=== PATIENT | female | born 1980 | race Hispanic/Latino ===

== ENCOUNTER 2018-11-24 04:39 | Emergency (ER) | payer MEDICAID ==
[2018-11-24 05:35] LABS: BILIRUBIN,URINE Negative (NEGATIVE); COLOR,URINE Yellow (YELLOW); GLUCOSE, URINE (UA) Negative (NEGATIVE); KETONES,URINE Negative (NEGATIVE); LEUKOCYTE ESTERASE ,URINE Negative (NEGATIVE); NITRATE,URINE Negative (NEGATIVE); OCCULT BLOOD,URINE Nonhemolyzed Trace (NEGATIVE); PH,URINE 6.5 (5.0-8.0); PROTEIN,URINE Negative (NEGATIVE)
[2018-11-24 05:36] LABS: APPEARANCE,URINE CLEAR (CLEAR); HCG,QUAL RESULT NEGATIVE (NEGATIVE)
[2018-11-24 05:36] LABS: BASOPHILS % (AUTO) 0.9 % (0.0-5.0); EOSINOPHILS % (AUTO) 2.5 % (0.0-8.0); HEMATOCRIT 39.7 % (36-48); LYMPHOCYTES % (AUTO) 25.1 % (21.0-51.0); MEAN CORPUSCULAR HEMOGLOBIN 27.9 pg (27.0-33.0); MEAN CORPUSCULAR HGB CONC 34.1 g/dL (32.0-36.0); MEAN CORPUSCULAR VOLUME 81.8 fL (79-99); MONOCYTES % (AUTO) 8.4 % (3.0-13.0); NEUTROPHILS % (AUTO) 63.1 % (40.0-77.0); NUCLEATED RED BLOOD CELLS 0.1 % (0.0-0.19); PLATELET COUNT (AUTO) 328 K/uL (130-400); RED BLOOD CELL COUNT(AUTO) 4.86 MIL/uL (4.00-5.50); RED CELL DISTRIBUTION WIDTH 13.4 % (11.0-15.5); WHITE BLOOD COUNT (AUTO) 9.7 K/uL (4.8-10.8)
[2018-11-24 05:40] LABS: BACTERIA,URINE None Seen /HPF (None Seen); RBC,URINE None Seen /HPF (0-1); WBC,URINE None Seen /HPF (0-1)
[2018-11-24 05:42] LABS: AMPHET/METH SCREEN,URINE NEGATIVE (NEGATIVE); BARBITURATE SCREEN, URINE NEGATIVE (NEGATIVE); BENZODIAZEPINES SCREEN,URINE NEGATIVE (NEGATIVE); CANNABINOID SCREEN,URINE NEGATIVE (NEGATIVE); COCAINE SCREEN,URINE POSITIVE (NEGATIVE); OPIATE SCREEN,URINE NEGATIVE (NEGATIVE); PHENCYCLIDINE SCREEN,URINE NEGATIVE (NEGATIVE)
[2018-11-24 05:48] LABS: CREATININE 0.8 mg/dL (0.5-1.5); POTASSIUM 3.5 mmol/L (3.5-5.1)
[2018-11-24 05:52] LABS: ALBUMIN 3.6 g/dL (3.5-5.0); BILIRUBIN,TOTAL 0.3 mg/dL (0.2-1.0); TOTAL PROTEIN, SERUM 6.8 g/dL (6.0-8.3)
[2018-11-24] MEDS ORDERED: ONDANSETRON HCL 4 MG/2 ML VIAL ONE (06:34)
[2018-11-24] MEDS ORDERED: ACETAMINOPHEN EXTRA STRENGTH 500 MG TABLET ONE (06:47)
== END 2018-11-24 08:49 | disposition home or self-care (01) ==
LOC: EDH 04:39
DX: R06.00 Dyspnea, unspecified (principal); F14.10 Cocaine abuse, uncomplicated; R11.10 Vomiting, unspecified; R42 Dizziness and giddiness; R20.2 Paresthesia of skin; R07.89 Other chest pain; F41.9 Anxiety disorder, unspecified; Z72.0 Tobacco use
CPT/HCPCS: 36415; 70450; 71045; 80053; 80305; 81001; 81025; 84484; 85025; 93005; 96374; 99285; J2405

== ENCOUNTER → 2019-10-24 | Outpatient (CLI) | payer MEDICAID | END | disposition home or self-care (01) | LOC: RAH 07:09 | PROVIDERS: ATTEND Family Medicine | DX: S39.0 Injury of muscle, fascia and tendon of abdomen, lower back and pelvis (principal); X58.XXXS Exposure to other specified factors, sequela ==

== ENCOUNTER → 2020-10-21 | Outpatient (CLI) | payer MEDICAID | END | disposition home or self-care (01) | LOC: RAH 10:03 | PROVIDERS: ATTEND Internal Medicine Gastroenterology | DX: R13.12 Dysphagia, oropharyngeal phase (principal); R63.3 Feeding difficulties | CPT/HCPCS: 74230; 92611 ==

== ENCOUNTER 2020-11-08 12:36 | Emergency (ER) | payer MEDICAID ==
[~2020-11-08] VITALS: Ht 152.4 cm; Wt 71.2 kg
[2020-11-08 13:17] LABS: BASOPHILS % (AUTO) 0.5 % (0.0-5.0); EOSINOPHILS % (AUTO) 0.8 % (0.0-8.0); HEMATOCRIT 38.9 % (36-48); LYMPHOCYTES % (AUTO) 22.8 % (21.0-51.0); MEAN CORPUSCULAR HEMOGLOBIN 28.9 pg (27.0-33.0); MEAN CORPUSCULAR HGB CONC 34.2 g/dL (32.0-36.0); MEAN CORPUSCULAR VOLUME 84.6 fL (79-99); NEUTROPHILS % (AUTO) 68.5 % (40.0-77.0); PLATELET COUNT (AUTO) 285 K/uL (130-400); RED CELL DISTRIBUTION WIDTH 12.7 % (11.0-15.5); WHITE BLOOD COUNT (AUTO) 7.5 K/uL (4.8-10.8)
[2020-11-08 13:20] LABS: APPEARANCE,URINE Clear (CLEAR); BILIRUBIN,URINE Negative (NEGATIVE); COLOR,URINE Yellow (YELLOW); GLUCOSE, URINE (UA) Negative (NEGATIVE); KETONES,URINE Negative (NEGATIVE); LEUKOCYTE ESTERASE ,URINE Negative (NEGATIVE); NITRATE,URINE Negative (NEGATIVE); OCCULT BLOOD,URINE Trace (NEGATIVE); PROTEIN,URINE Negative (NEGATIVE); UROBILINOGEN,URINE 0.2 mg/dL (0.2-1.0)
[2020-11-08 13:32] LABS: CREATININE 0.6 mg/dL (0.5-1.5); POTASSIUM 3.7 mmol/L (3.5-5.1)
[2020-11-08 13:42] LABS: ALBUMIN 3.7 g/dL (3.5-5.0); BILIRUBIN,TOTAL 0.4 mg/dL (0.2-1.0); TOTAL PROTEIN, SERUM 7.5 g/dL (6.0-8.3)
[2020-11-08 13:46] LABS: BACTERIA,URINE None Seen /HPF (None Seen); RBC,URINE 0-1 /HPF (0-1); WBC,URINE None Seen /HPF (0-1)
[2020-11-08] MEDS ORDERED: MORPHINE 5 MG/ML VIAL (5MG OR GREATER DOSE) IV ONE (14:30)
[2020-11-08] MEDS ORDERED: ONDANSETRON 4MG INJ IVP ONE (14:30)
[2020-11-08] MEDS ORDERED: ONDANSETRON 4MG INJ ONE (14:43)
[2020-11-08] MEDS ORDERED: MORPHINE 5 MG/ML VIAL (5MG OR GREATER DOSE) ONE (14:43)
[2020-11-08 14:47] VITALS: BP 126/79
[2020-11-08] MEDS ORDERED: IOHEXOL-350 75 ML VIAL IV ONE (14:59)
[2020-11-08] MEDS ORDERED: KETOROLAC 30MG VIAL (30MG/ML) IV ONE (15:45)
[2020-11-08] MEDS ORDERED: DICY20TA2 PO (16:15)
[2020-11-09] MEDS ORDERED: SIME180C70 PO (00:45)
== END 2020-11-08 16:37 | disposition home or self-care (01) ==
LOC: EDH 12:36
DX: K57.30 Diverticulosis of large intestine without perforation or abscess without bleeding (principal); Z79.899 Other long term (current) drug therapy; Z98.51 Tubal ligation status
CPT/HCPCS: 36415 ×2; 74177; 76705; 80053 ×2; 81001; 82550 ×2; 83690 ×2; 84484 ×2; 84702; 85025 ×2; 93005 ×2; 96365; 96374; 96375; 99285 ×2; J1885; J2270; J2405; J3490; J7030; S0028; Q9967

== ENCOUNTER 2020-11-08 19:45 | Emergency (ER) | payer MEDICAID ==
[~2020-11-08] VITALS: Ht 165.1 cm; Wt 70.8 kg
[~2020-11-08 19:45] MED LIST: DICY20TA2 PO
[2020-11-08 20:05] VITALS: BP 106/65
[2020-11-08] MEDS ORDERED: FAMOTIDINE 20MG VIAL IV ONE (20:30)
[2020-11-08] MEDS ORDERED: SIMETHICONE 80 MG TAB.CHEW PO ONE (20:30)
[2020-11-08] MEDS ORDERED: NACL 0.9% 1000ML 1,000 ML IV ONE ×2 (20:30→20:47)
[2020-11-08 20:48] LABS: BASOPHILS % (AUTO) 0.3 % (0.0-5.0); EOSINOPHILS % (AUTO) 0.3 % (0.0-8.0); HEMATOCRIT 40.4 % (36-48); LYMPHOCYTES % (AUTO) 12.2 % (21.0-51.0); MEAN CORPUSCULAR HEMOGLOBIN 28.7 pg (27.0-33.0); MEAN CORPUSCULAR HGB CONC 34.2 g/dL (32.0-36.0); MONOCYTES % (AUTO) 6.1 % (3.0-13.0); NEUTROPHILS % (AUTO) 80.5 % (40.0-77.0); PLATELET COUNT (AUTO) 289 K/uL (130-400); RED BLOOD CELL COUNT(AUTO) 4.81 MIL/uL (4.00-5.50); RED CELL DISTRIBUTION WIDTH 12.6 % (11.0-15.5); WHITE BLOOD COUNT (AUTO) 11.9 K/uL (4.8-10.8)
[2020-11-08 21:05] LABS: ALBUMIN 3.9 g/dL (3.5-5.0); BILIRUBIN,TOTAL 0.7 mg/dL (0.2-1.0); CREATININE 0.8 mg/dL (0.5-1.5); TOTAL PROTEIN, SERUM 7.8 g/dL (6.0-8.3)
[2020-11-08 21:08] LABS: POTASSIUM 2.9 mmol/L (3.5-5.1)
[2020-11-08 21:48] VITALS: BP 109/62
[2020-11-08] MEDS ORDERED: POTASSIUM BICARB/CIT AC 25 MEQ TABLET.EFF ONE (21:50)
[2020-11-08 22:29] VITALS: BP 105/56
[2020-11-08 23:56] VITALS: BP 102/53
[2020-11-09] MEDS ORDERED: SIME180C70 PO (00:45)
[2020-11-09 00:52] VITALS: BP 106/58
== END 2020-11-09 01:08 | disposition home or self-care (01) ==
LOC: EDH 19:45
DX: F45.8 Other somatoform disorders (principal); E87.6 Hypokalemia; K76.89 Other specified diseases of liver; G89.29 Other chronic pain; R10.9 Unspecified abdominal pain
CPT/HCPCS: 36415; 76705; 80053; 82550; 83690; 84484; 85025; 93005; 96365; 99285; J7030; S0028; J3490

== ENCOUNTER 2021-03-12 00:05 | Emergency (ER) | payer MEDICAID ==
[~2021-03-12] VITALS: Ht 152.4 cm; Wt 67.1 kg
[~2021-03-12 00:05] MED LIST changes: +SIME180C70 PO
[2021-03-12 00:39] LABS: APPEARANCE,URINE Clear (CLEAR); BILIRUBIN,URINE Negative (NEGATIVE); COLOR,URINE Yellow (YELLOW); GLUCOSE, URINE (UA) Negative (NEGATIVE); HCG,QUAL RESULT NEGATIVE (NEGATIVE); KETONES,URINE Negative (NEGATIVE); LEUKOCYTE ESTERASE ,URINE Negative (NEGATIVE); NITRATE,URINE Negative (NEGATIVE); OCCULT BLOOD,URINE Trace (NEGATIVE); PROTEIN,URINE Negative (NEGATIVE); UROBILINOGEN,URINE 0.2 mg/dL (0.2-1.0)
[2021-03-12 00:48] LABS: BACTERIA,URINE Rare /HPF (None Seen); RBC,URINE 0-1 /HPF (0-1); SQUAMOUS EPITHELIAL CELL,UR 0-2 /HPF (0-2); WBC,URINE None Seen /HPF (0-1)
[2021-03-12 00:49] LABS: BASOPHILS % (AUTO) 0.5 % (0.0-5.0); EOSINOPHILS % (AUTO) 1.2 % (0.0-8.0); HEMATOCRIT 40.3 % (36-48); MEAN CORPUSCULAR HEMOGLOBIN 28.8 pg (27.0-33.0); MEAN CORPUSCULAR HGB CONC 34.2 g/dL (32.0-36.0); MONOCYTES % (AUTO) 8.3 % (3.0-13.0); NEUTROPHILS % (AUTO) 59.5 % (40.0-77.0); PLATELET COUNT (AUTO) 294 K/uL (130-400); RED CELL DISTRIBUTION WIDTH 12.2 % (11.0-15.5); WHITE BLOOD COUNT (AUTO) 9.2 K/uL (4.8-10.8)
[2021-03-12 00:57] LABS: CREATININE 0.6 mg/dL (0.5-1.5); POTASSIUM 3.4 mmol/L (3.5-5.1)
[2021-03-12] MEDS ORDERED: LACTATED RINGERS 1000ML 1,000 ML IV ONE (01:00)
[2021-03-12 01:02] LABS: ALBUMIN 3.7 g/dL (3.5-5.0); BILIRUBIN,TOTAL 0.3 mg/dL (0.2-1.0); TOTAL PROTEIN, SERUM 7.5 g/dL (6.0-8.3)
[2021-03-12] MEDS ORDERED: PROCHLORPERAZINE 10MG/2ML INJ ONE (02:24)
[2021-03-12] MEDS ORDERED: KETOROLAC 15MG/ML VIAL (15MG/ML) IV ONE (02:30)
[2021-03-12] MEDS ORDERED: PROCHLORPERAZINE EDISYLATE 5 MG/ML 2 ML VIAL IVP ONE (02:30)
[2021-03-12] MEDS ORDERED: MAGNESIUM CITRATE 296 ML SOLUTION PO ONE (02:30)
[2021-03-12] MEDS ORDERED: DiphenhydrAMINE HCL 50 MG/ML VIAL IV ONE (02:30)
[2021-03-12] MEDS ORDERED: 0.9%NACL 1000ML 1,000 ML IV ONE (03:00)
[2021-03-12] MEDS ORDERED: LORAZEPAM 2 MG/ML 1 ML VIAL IVP ONE (03:00)
[2021-03-12] MEDS ORDERED: LACT10SO9 PO (04:27)
[2021-03-12 04:39] VITALS: BP 102/69
== END 2021-03-12 04:42 | disposition home or self-care (01) ==
LOC: EDH 00:05
DX: K59.00 Constipation, unspecified (principal); K58.9 Irritable bowel syndrome, unspecified; Z90.49 Acquired absence of other specified parts of digestive tract
CPT/HCPCS: 36415; 74176; 80053; 81001; 81025; 85025; 96361; 96374; 96375; 99284; J0780; J1200; J1885; J2060; J7030; J7120